=== PATIENT | female | born 2000 | race Caucasian/White ===

== ENCOUNTER 2020-12-30 10:02 | Emergency (ER) | payer MEDICAID, SELFPAY ==
[2020-12-30 10:06] VITALS: BP 124/64; PULSE 90; RESP 16; TEMP 36.8; O2SAT 99; BMI 25.0
--- NOTE | 2020-12-30 10:20 | US_ITS ---
STUDY: FIRST TRIMESTER OBSTETRICAL ULTRASOUND REASON FOR EXAM: Female, 20 years old bleeding -- QUANT 962 LMP: 11/10/2020. TECHNIQUE: TECHNICAL QUALITY: Adequate. PRIOR ULTRASOUND: None. FINDINGS: There is no demonstrated intrauterine gestational sac. There is no demonstrated yolk sac. The placenta is non-visualized. There is no demonstrated embryo ( pole). The estimated gestation age (EGA) by LMP is 7 weeks, 1 days. The estimated date of delivery (JULITO) by LMP is 08/17/2021. The uterus measures 7.2 cm x 5 cm x 4.3 centimeters. There is no demonstrated uterine fibroid. The cervix is closed. The right ovary measures 3.3 cm x 2.7 cm x 2.2 cm. There is a 9 mm x 9 mm x 6 mm cystic structure superior to the right ovary. An ectopic should be ruled out. Moderate amount of free fluid is seen surrounding the right ovary. The left ovary measures 2.1 cm x 1.9 cm x 1.6 cm. There is no left ovarian cyst. There is no visualized left adnexal mass or complex lesion. US/Transvaginal w/Preg US IMPRESSION: No intrauterine gestation is seen. Moderate amount of free fluid in the right hemipelvis. There is a 9 mm x 9 mm x 6 mm cystic structure superior to the right ovary. Possible ectopic . Clinical correlation and beta hCG correlation suggested. Electronically Signed: Lawrence Ventura MD at 12:59 EDT , Service support ,
--- NOTE | 2020-12-30 10:21 | EDS_ITS ---
HPI HPI - Female History of Present Illness Chief Complaint: Vag Bld, Preg Informant: patient Bleeding Issue: Positive for Vaginal bleeding Onset: Today Timing: Intermittent Current Severity: - (Noted blood only when she went to the restroom.) Associated Symptoms P: 0 Ab: 1 Narrative Narrative: Patient presents secondary to vaginal bleeding. Patient believes she is approximate 9 weeks . LMP was 11/10/2020. Patient states she had 3+ home test and did go to emergency room near where she lives and did have the confirmed. She has not yet seen an [employer] or had an ultrasound. She does have one prior miscarriage. [facility] Medical History Acid reflux Seasonal allergies Home Medications loratadine 10 mg PO DAILY 12/30/20 [History Last Taken Unknown] Allergy/AdvReac Type Severity Reaction Status Date / Time amoxicillin Allergy Anaphylaxis Verified 12/30/20 10:04 Penicillins Allergy Anaphylaxis Verified 12/30/20 10:04 Social History Smoking Status: Current every day smoker tobacco type: cigarettes ROS ROS ED Constitutional Constitutional ED: Denies chills or fever(s) Eyes Eyes: Denies change in vision ENT ENT ED: Denies sore throat Cardiovascular Cardiovascular: Denies chest pain Respiratory/Chest Respiratory/Chest: Denies cough or dyspnea Gastrointestinal Gastrointestinal: Denies abdominal pain, diarrhea, nausea or vomiting Genitourinary Genitourinary ED: Denies dysuria Musculoskeletal Musculoskeletal: Denies back pain Integumentary Denies rash Neurologic Neurologic: Denies headache(s) or weakness Psychiatric Psychiatric: Denies anxiety or depression EXAM Physical Exam Const Vital Signs: 12/30/20 10:06 12/30/20 12:08 Temperature 98.3 F Temperature Source Temporal Pulse Rate 90 Respiratory Rate 16 14 Blood Pressure 124/64 H Blood Pressure Mean 84 Pulse Ox 99 Oxygen Delivery Method Room Air Positive well nourished and well developed General Appearance ED: well developed HEENT Reports normocephalic and head/scalp atraumatic Eyes PERRL and EOMs intact bilaterally Neck supple Chest Wall inspection of chest normal and palpation of chest normal Resp normal respiratory effort and clear to auscultation bilaterally Cardio regular rate and regular rhythm GI normal to inspection, nondistended, normoactive bowel sounds, soft to palpation and non-tender Palpation: soft Extremity normal to inspection Neuro oriented x3 and no sensory deficits noted Sensorium / Orientation: alert Motor Exam: strength 5/5 throughout Psych mental status grossly normal Skin no rashes or lesions noted MDM MDM MDM Narrative Medical decision making narrative: Blood type, quant, pelvic ultrasound ordered. Lab Data Attestation: I reviewed the patient's lab results. Labs: Laboratory Results - last 24 hr 12/30/20 12/30/20 10:30 10:30 HCG, Quant 962 H Blood Type A POSITIVE Radiography Diagnostic Testing: Radiology Impression Obstetrics Ultrasound 12/30/20 10:20 IMPRESSION: No intrauterine gestation is seen. Moderate amount of free fluid in the right hemipelvis. There is a 9 mm x 9 mm x 6 mm cystic structure superior to the right ovary. Possible ectopic . Clinical correlation and beta hCG correlation suggested. Electronically Signed: Lawrence Ventura MD at 12:59 EDT , Service support , Treatment and Re-Evaluation Comments:: Test results discussed with patient and significant other at bedside. I spoke with Dr. Gunner Forrest, on-call for [employer]. He advises that as long as the patient is not having significant pain or heavy bleeding she can be followed up in the next couple days. He is happy to see her in the office on Sunday. If she wishes to follow-up with the doctors in [place] that she is scheduled to see she needs to be seen within 1 week. I will write her for a 48-hour quant. Discharge Plan Triage Chief Complaint: Vag Bld, Preg ED Provider: Krysta Moreno Dx/Rx/DC Orders Clinical Impression: Miscarriage, threatened, early Instructions: ED Possible Miscarriage ... Prescriptions: No Action loratadine 10 mg Tablet 10 mg PO DAILY RF: 0 Primary Care Provider: Care Physician,No Primary Referrals: Gunner Forrest MD [STAFF PHYSICIAN] - 3-5 Days Care Physician,No Primary [Primary Care Provider] - Activity Restrictions/Additional Instructions: Your case was discussed with Dr. Gunner Forrest. He is happy to see you in the office on Sunday. If he would like to follow-up with him please call the office soon as possible to schedule that appointment. You have been written an outpatient order to have labs drawn on Sunday to recheck your hormone level. If you wish to follow-up with the [employer] group in [place] please be sure to follow-up within 1 week. If you have increased pain or bleeding please present to the nearest emergency room for evaluation. As discussed, your ultrasound cannot rule out an ectopic and this needs to be closely followed. Disposition Disposition: Home, Self Care
--- NOTE | 2020-12-30 11:07 | CM.ED ---
SW Note SW reviewed chart and noted patient has no Primary Care Provider. However, patient resides in [facility]) so would use a provider closer to her residence as her PCP. No further SW services needed at this time. Shauna Carias
[2020-12-30 11:23] LABS: hCG Titer Quant., Serum 962 mIU/mL (1-3)
[2020-12-30 12:08] VITALS: RESP 14
== END 2020-12-30 14:00 | disposition home or self-care (01) ==
PROVIDERS: Emergency Provider Emergency Medicine
DX: O20.0 Threatened abortion (principal); O99.330 Smoking (tobacco) complicating pregnancy, unspecified trimester; F17.200 Nicotine dependence, unspecified, uncomplicated; Z3A.00 Weeks of gestation of pregnancy not specified
CPT/HCPCS: 76817; 84702; 86900; 86901; 99283; A4216